=== PATIENT | male | born 1955 | race Caucasian/White ===

== ENCOUNTER 2024-05-03 11:09 | Day surgery (SDC) | payer MEDICARE, OTHER ==
[2024-05-03] VITALS (12 sets, daily range): BP systolic 103–151; BP diastolic 60–85; PULSE 70–85; RESP 10–18; TEMP 97.4; O2SAT 92–98
[~2024-05-03] VITALS: Ht 177.8 cm; Wt 91.9 kg
[2024-05-03] MEDS ORDERED: nitroGLYCERIN 0.4mg SUBLingual tab SL PRN (11:45)
[2024-05-03] MEDS: normal saline 1,000 ML IV SCH (11:52)
[2024-05-03] MEDS: LORazepam 0.5 MG tablet PO PRN (11:52)
[2024-05-03] MEDS: diphenhydrAMINE 25mg capsule PO PRN (11:53)
[2024-05-03] MEDS ORDERED: iohexol 350MG/ML 100ml bottle IV ONE (11:57)
[2024-05-03] MEDS ORDERED: iohexol 350 MG/ML 50ML vial IV ONE (11:57)
[2024-05-03] MEDS ORDERED: LIDOcaine 1% 30ml preserv. free vial ONE (11:57)
[2024-05-03] MEDS ORDERED: midazolam 1 mg/ML 2ml injection ONE (11:57)
[2024-05-03] MEDS ORDERED: fentaNYL/PF 50MCG/1 ML 2ML syringe ONE (11:57)
[2024-05-03] MEDS ORDERED: dextrose 50%-water 50ml dispensing syringe IV PRN ×2 (12:15→12:20)
[2024-05-03] MEDS ORDERED: DEXTROSE 15 GM of carb/4 tabs (each vial/BOTTLE has 4 tablets) PO PRN ×3 (12:15→12:20)
[2024-05-03 12:18] LABS: BASOPHILS % (AUTO) 0.4 % (0-1); EOSINOPHILS % (AUTO) 0.2 % (0-6); HEMATOCRIT 52.8 % (42.0-52.0); HEMOGLOBIN 17.8 g/dl (14.0-17.9); LYMPHOCYTES % (AUTO) 15.2 % (21-51); MEAN CORPUSCULAR HEMOGLOBIN 29.9 PG (27.0-31.0); MEAN CORPUSCULAR HGB CONC 33.8 g/dL (33.0-36.5); MEAN CORPUSCULAR VOLUME 88.6 FL (78-98); MEAN PLATELET VOLUME 9.1 FL (7.4-10.4); MONOCYTES # (AUTO) 0.4 X10'3 (0-0.9); MONOCYTES % (AUTO) 6.1 % (2-12); NEUTROPHILS # (AUTO) 5.3 X10'3 (1.8-7.7); NEUTROPHILS % (AUTO) 78.1 % (42-75); PLATELET COUNT 217 X10'3 (140-440); RED BLOOD COUNT 5.96 X10'6 (4.70-6.10); RED CELL DISTRIBUTION WIDTH 13.3 % (11.5-14.5); WHITE BLOOD COUNT 6.8 X10'3 (4.5-11.0)
[2024-05-03] MEDS ORDERED: SITA100T11 PO (12:20)
[2024-05-03] MEDS ORDERED: LANTUS SQ (12:20)
[2024-05-03] MEDS ORDERED: GLIP5TAB23 PO (12:20)
[2024-05-03] MEDS ORDERED: EMPA10TA PO (12:20)
[2024-05-03] MEDS ORDERED: LISI2.5T14 PO (12:20)
[2024-05-03] MEDS ORDERED: NITR0.4T51 SL (12:21)
[2024-05-03 12:31] LABS: ALBUMIN 4.7 G/DL (3.4-5.0); ANION GAP 13 (8-16); APTT 29 SECONDS (22-32); BLOOD UREA NITROGEN 19 MG/DL (7-18); BUN/CREATININE RATIO 21.3 (10.0-20.0); CALCIUM 9.3 MG/DL (8.5-10.1); CHLORIDE 100 MMOL/L (99-107); CREATININE 0.89 MG/DL (0.60-1.10); GLUCOSE 179 MG/DL (70-104); INR 1.1 INR; POTASSIUM 3.9 MMOL/L (3.5-5.1); PROTHROMBIN TIME 11.2 SECONDS (9.0-12.0); SODIUM 139 MMOL/L (135-145); TOTAL CARBON DIOXIDE 25.9 MMOL/L (24-32); eCRCL 83 ML/MIN; eGFR 85 ML/MIN
[2024-05-03] MEDS ORDERED: ondansetron/PF 4mg/2ml inj IV PRN (14:20)
[2024-05-03] MEDS ORDERED: proCHLORperazine 10 MG/2 ml inj IV PRN (14:20)
[2024-05-03] MEDS ORDERED: OXAZEpam 15mg capsule PO PRN (14:20)
[2024-05-03] MEDS ORDERED: HYDROcodone/acetaminophen 10/325mg tab PO PRN (14:20)
[2024-05-03] MEDS ORDERED: HYDROcodone/acetaminophen 5mg/325mg tablet PO PRN (14:20)
[2024-05-03] MEDS ORDERED: normal saline 1000ml 1,000 ML IV SCH (14:20)
== END 2024-05-03 19:30 | disposition home or self-care (01) ==
LOC: SSTAY O 11:09
PROVIDERS: ATTEND Internal Medicine Cardiovascular Disease
DX: R94.39 Abnormal result of other cardiovascular function study (principal); I25.118 Atherosclerotic heart disease of native coronary artery with other forms of angina pectoris; I10 Essential (primary) hypertension; E11.9 Type 2 diabetes mellitus without complications; I44.5 Left posterior fascicular block; Z79.899 Other long term (current) drug therapy; Z79.01 Long term (current) use of anticoagulants
CPT/HCPCS: 36415; 71046; 80048; 85025; 85610; 85730; 93005; 93458; 93880; 93970; 94010; 99152; 99153; A6258; C1760; J1644; J2003; J2250; J3010; J7030; Q0163; Q9967; Z7610

== ENCOUNTER 2024-05-08 05:21 | Inpatient (IN) | payer MEDICARE, OTHER ==
[~2024-05-08] VITALS: Ht 177.8 cm; Wt 91.3 kg
[2024-05-08] VITALS (21 sets, daily range): BP systolic 99–159; BP diastolic 50–75; PULSE 70–81; RESP 12–23; TEMP 97.6; O2SAT 94–100
[~2024-05-08 05:21] MED LIST: EMPA10TA PO; GLIP5TAB23 PO; LANTUS SQ; LISI2.5T14 PO; NITR0.4T51 SL; SITA100T11 PO
[2024-05-08] MEDS: Insulin Reg/NS 100units/100mL 100 ML IV SCH ×2 (06:40→18:31)
[2024-05-08] MEDS ORDERED: epiNEPHrine 1 mg/ml inj ONE (06:44)
[2024-05-08] MEDS ORDERED: ceFAZolin 1000mg inj ONE (06:44)
[2024-05-08] MEDS ORDERED: vancomycin 1,000mg inj ONE (06:45)
[2024-05-08] MEDS ORDERED: BUPIVAcaine 0.5% inj/PF 30 ML ONE (06:45)
[2024-05-08] MEDS: ceFAZolin 1000mg inj IR ONE (07:00)
[2024-05-08] MEDS: mupirocin 2% nasal ointment 1gm UD NS SCH ×2 (07:31→20:06)
[2024-05-08] MEDS: VANCOMYCIN/WATER FOR INJ (PEG) 1.5GM/300 ML IVPB IV ONE (07:31)
[2024-05-08] MEDS: famotidine 20mg tablet PO ONE (07:31)
[2024-05-08] MEDS: ceFAZolin 2gm in dextrose, iso 50 ML IV ONE (07:32)
[2024-05-08] MEDS: metoprolol tartrate 12.5mg (1/2 tablet) PO ONE (07:33)
[2024-05-08] MEDS ORDERED: aminocaproic acid 250 MG/1 ML inj. ONE (08:00)
[2024-05-08] MEDS ORDERED: isoflurane 100ml inhalation liquid IH ONE (08:03)
[2024-05-08] MEDS ORDERED: SUfentanil 50mcg/ml 1ml amp IV ONE (08:03)
[2024-05-08] MEDS ORDERED: MIDAZolam 1mg/ml 10ml vial ONE (08:03)
[2024-05-08] MEDS: midazolam 1 mg/ML 2ml injection IV ONE ×2 (08:05→08:15)
[2024-05-08] MEDS ORDERED: fentaNYL/PF 50MCG/1 ML 2ML syringe IV PRN (08:15)
[2024-05-08] MEDS: midazolam 100mg in NS 100ml 100 ML IV SCH (08:15)
[2024-05-08] MEDS: FENTANYL-0.9 % NACL/PF 100 ML IV SCH (08:15)
[2024-05-08 08:42] LABS: ABG HCO3 21.6 mmol/L (21.0-28.0); ABG OXYGEN SATURATION 99.3 % (94.0-98.0); ABG PCO2 41.4 mmHg (35.0-48.0); ABG PH 7.335 (7.350-7.450); ABG PO2 270.9 mmHg (83.0-108.0); CL (ABG) 105 mmol/L (98-107); FCOHb 0.3 % (0.5-1.5); FHHb 0.7 % (0.0-5.0); FMetHb 0.2 % (0.0-1.5); FO2Hb 98.8 % (94.0-98.0); GLUCOSE (ABG) 173 mg/dl (65-95); IONIZED CA (ABG) 1.17 mmol/L (1.15-1.33); K (ABG) 3.6 mmol/L (3.40-4.50)
[2024-05-08] MEDS ORDERED: albumin (Human) 5% 250ml 250 ML IV ONE ×2 (08:51→10:05)
[2024-05-08] MEDS: INSULIN LISPRO 100 UNIT/ML INSULN.PEN MULTI-DOSE SQ SCH (09:00)
[2024-05-08] MEDS ORDERED: rocuronium 10mg/ml inj IV ONE ×3 (09:13→09:14)
[2024-05-08] MEDS ORDERED: propofol inj 20 ML IV ONE (09:13)
[2024-05-08] MEDS ORDERED: phenylephrine 10mg/ml inj. ONE (09:13)
[2024-05-08] MEDS ORDERED: 0.9 % SODIUM CHLORIDE 10 ML VIAL ONE (09:13)
[2024-05-08] MEDS ORDERED: LIDOcaine 2% (20mg/ml) 5ml vial ONE (09:14)
[2024-05-08] MEDS ORDERED: dexamethasone sod phosphate 4mg/ml inj. ONE (09:14)
[2024-05-08] MEDS ORDERED: ondansetron/PF 4mg/2ml inj ONE (09:14)
[2024-05-08] MEDS ORDERED: magnesium 1 GM/2 ML inj ONE ×2 (09:26)
[2024-05-08 09:59] LABS: ABG BASE EXCESS -5.3 mmol/L (-2.0-3.0); ABG HCO3 18.7 mmol/L (21.0-28.0); ABG OXYGEN SATURATION 99.4 % (94.0-98.0); ABG PCO2 32.1 mmHg (35.0-48.0); ABG PH 7.383 (7.350-7.450); ABG PO2 319.9 mmHg (83.0-108.0); CL (ABG) 106 mmol/L (98-107); FCOHb 0.3 % (0.5-1.5); FHHb 0.6 % (0.0-5.0); FMetHb 0.2 % (0.0-1.5); FO2Hb 98.9 % (94.0-98.0); GLUCOSE (ABG) 157 mg/dl (65-95); IONIZED CA (ABG) 1.14 mmol/L (1.15-1.33); K (ABG) 4.2 mmol/L (3.40-4.50); TOTAL HEMOGLOBIN 14.3 G/dl (13.5-17.5)
[2024-05-08 10:02] LABS: ACTIVATED CLOTTING TIME 130 SEC (101-148)
[2024-05-08] MEDS ORDERED: sodium phosphate inj. 15 MMOL in dextrose 5%-water 250 ML IV PRN (10:20)
[2024-05-08] MEDS ORDERED: potassium Cl 40MEQ/1/2NS 520ml 520 ML IV PRN (10:20)
[2024-05-08] MEDS ORDERED: insulin glargine (Lantus) pen - multi-dose SQ PRN (10:20)
[2024-05-08] MEDS ORDERED: mineral oil 133ml enema RC PRN (10:20)
[2024-05-08] MEDS ORDERED: magnesium sulf-water 4G/100mL 100 ML IV PRN (10:20)
[2024-05-08] MEDS ORDERED: dextrose 50%-water 50ml dispensing syringe IV PRN (10:20)
[2024-05-08] MEDS ORDERED: metoclopramide 5 mg/ml inj IV PRN (10:20)
[2024-05-08] MEDS ORDERED: acetaminophen 325mg tablet PO PRN ×2 (10:20)
[2024-05-08] MEDS ORDERED: potassium CL 10mEq/100ml bag 100 ML IV PRN (10:20)
[2024-05-08] MEDS ORDERED: potassium Cl 40MEQ/270ML bag 250 ML IV PRN (10:20)
[2024-05-08] MEDS ORDERED: morphine 4 MG/ML inj SYRINge IV PRN (10:20)
[2024-05-08] MEDS ORDERED: Neutra Phos packet PO PRN (10:20)
[2024-05-08] MEDS ORDERED: sodium phosphate inj. 30 MMOL in dextrose 5%-water 250 ML IV PRN (10:20)
[2024-05-08] MEDS ORDERED: potassium Cl 20 mEq SR tablet PO PRN (10:20)
[2024-05-08 10:29] LABS: ACT @ 1.70 U 292 SEC (193-297); ACT @ 2.84 U 402 SEC (260-420); BASELINE ACT 139 SEC (101-148); PATIENT WEIGHT 91.0k KG
[2024-05-08] MEDS ORDERED: sodium phosphate inj. 15 MMOL in normal saline 250ml IV soln 250 ML IV PRN (10:51)
[2024-05-08] MEDS ORDERED: sodium phosphate inj. 30 MMOL in normal saline 250ml IV soln 250 ML IV PRN (10:51)
[2024-05-08] MEDS: albumin (Human) 5% 250ml 250 ML IV PRN (10:53)
[2024-05-08 10:59] LABS: ABG BASE EXCESS -2.4 mmol/L (-2.0-3.0); ABG HCO3 22.7 mmol/L (21.0-28.0); ABG PCO2 (T) 36.7 mmHg (35.0-48.0); ABG PO2 (T) 128.7 mmHg (83.0-108.0); FCOHb 0.7 % (0.5-1.5); FMetHb 0.3 % (0.0-1.5); MODE SIMV; PATIENT TEMPERATURE 34.8; PEEP 5 cm H2O; RESPIRATORY RATE 12 b/min; TIDAL VOLUME 600 mL; TOTAL HEMOGLOBIN 13.5 G/dl (13.5-17.5)
[2024-05-08 11:12] LABS: BASOPHILS % (AUTO) 0.5 % (0-1); EOSINOPHILS # (AUTO) 0.1 X10'3 (0-0.9); EOSINOPHILS % (AUTO) 1.4 % (0-6); HEMATOCRIT 39.1 % (42.0-52.0); LYMPHOCYTES # (AUTO) 0.9 X10'3 (1.1-4.8); LYMPHOCYTES % (AUTO) 15.7 % (21-51); MEAN CORPUSCULAR HEMOGLOBIN 29.5 PG (27.0-31.0); MEAN CORPUSCULAR HGB CONC 33.3 g/dL (33.0-36.5); MEAN CORPUSCULAR VOLUME 88.6 FL (78-98); MEAN PLATELET VOLUME 9.2 FL (7.4-10.4); MONOCYTES # (AUTO) 0.4 X10'3 (0-0.9); MONOCYTES % (AUTO) 6.3 % (2-12); NEUTROPHILS # (AUTO) 4.6 X10'3 (1.8-7.7); NEUTROPHILS % (AUTO) 76.1 % (42-75); PLATELET COUNT 173 X10'3 (140-440); RED BLOOD COUNT 4.41 X10'6 (4.70-6.10); RED CELL DISTRIBUTION WIDTH 12.9 % (11.5-14.5)
[2024-05-08 11:27] LABS: APTT 31 SECONDS (22-32); INR 1.1 INR; PROTHROMBIN TIME 11.9 SECONDS (9.0-12.0)
[2024-05-08 11:38] LABS: ALANINE AMINOTRANSFERASE 40 U/L (12-78); ALBUMIN 2.9 G/DL (3.4-5.0); ALBUMIN/GLOBULIN RATIO 1.1 (1.1-1.5); ALKALINE PHOSPHATASE 74 IU/L (46-116); ANION GAP 5 (8-16); ASPARTATE AMINO TRANSFERASE 24 U/L (10-37); BILIRUBIN,TOTAL 0.5 MG/DL (0.1-1.0); BLOOD UREA NITROGEN 14 MG/DL (7-18); BUN/CREATININE RATIO 23.3 (10.0-20.0); CALCIUM 7.5 MG/DL (8.5-10.1); CHLORIDE 111 MMOL/L (99-107); GLUCOSE 130 MG/DL (70-104); MAGNESIUM 2.3 MG/DL (1.5-2.4); PHOSPHORUS 2.5 MG/DL (2.3-4.5); SODIUM 142 MMOL/L (135-145); TOTAL CARBON DIOXIDE 26.1 MMOL/L (24-32); TOTAL PROTEIN 5.5 G/DL (6.4-8.2); eCRCL 123 ML/MIN; eGFR > 90 ML/MIN
[2024-05-08 11:40] LABS: POTASSIUM 4.4 MMOL/L (3.5-5.1)
[2024-05-08] MEDS: nitroGLYCERIN-Tridil 50MG/D5W 250 ML IV SCH (11:45)
[2024-05-08] MEDS: sodium chloride 0.45% 1,000 ML IV SCH (12:00)
[2024-05-08] MEDS: niCARDipine-NS 40mg/200ml IVPB 200 ML IV PRN (12:33)
[2024-05-08] MEDS: magnesium sulf-water 2g/50mL 50 ML IV PRN (12:33)
[2024-05-08] MEDS: potassium Cl 20mEq/100mL bag 100 ML IV PRN (12:34)
[2024-05-08] MEDS: ketorolac trometh 15mg/ml vial 15 MG/ML ML IV SCH (13:49)
[2024-05-08] MEDS: morphine 2 MG/ML inj. syringe IV PRN (15:49)
[2024-05-08] MEDS: ceFAZolin/D5W- 1GM premix 50 ML IV SCH (16:11)
[2024-05-08 17:29] LABS: BASOPHILS % (AUTO) 0.2 % (0-1); EOSINOPHILS % (AUTO) 0.1 % (0-6); HEMATOCRIT 39.4 % (42.0-52.0); HEMOGLOBIN 13.2 g/dl (14.0-17.9); LYMPHOCYTES # (AUTO) 0.4 X10'3 (1.1-4.8); LYMPHOCYTES % (AUTO) 3.4 % (21-51); MEAN CORPUSCULAR HEMOGLOBIN 29.7 PG (27.0-31.0); MEAN CORPUSCULAR HGB CONC 33.5 g/dL (33.0-36.5); MEAN CORPUSCULAR VOLUME 88.5 FL (78-98); MONOCYTES # (AUTO) 0.6 X10'3 (0-0.9); MONOCYTES % (AUTO) 5.3 % (2-12); NEUTROPHILS # (AUTO) 10.1 X10'3 (1.8-7.7); PLATELET COUNT 203 X10'3 (140-440); RED BLOOD COUNT 4.46 X10'6 (4.70-6.10); WHITE BLOOD COUNT 11.1 X10'3 (4.5-11.0)
[2024-05-08 17:40] LABS: ALBUMIN 3.6 G/DL (3.4-5.0); ANION GAP 6 (8-16); BLOOD UREA NITROGEN 12 MG/DL (7-18); BUN/CREATININE RATIO 19.4 (10.0-20.0); CHLORIDE 111 MMOL/L (99-107); CREATININE 0.62 MG/DL (0.60-1.10); GLUCOSE 119 MG/DL (70-104); MAGNESIUM 2.4 MG/DL (1.5-2.4); PHOSPHORUS 2.5 MG/DL (2.3-4.5); POTASSIUM 4.6 MMOL/L (3.5-5.1); SODIUM 142 MMOL/L (135-145); eCRCL 119 ML/MIN; eGFR > 90 ML/MIN
[2024-05-08] MEDS: HYDROcodone/acetaminophen 10/325mg tab PO PRN (18:30)
[2024-05-08] MEDS: sennosides/docusate sodium tablet PO SCH (20:05)
[2024-05-08] MEDS: vancomycin/NS 1 GM ADD-VANTAGE 250 ML IV SCH (20:06)
[2024-05-08] MEDS: atorvastatin 10mg tablet PO SCH (20:06)
[2024-05-09] VITALS (25 sets, daily range): BP systolic 102–137; BP diastolic 49–83; PULSE 60–92; RESP 11–19; O2SAT 89–97
[2024-05-09 02:19] LABS: BASOPHILS % (AUTO) 0.4 % (0-1); EOSINOPHILS % (AUTO) 0 % (0-6); HEMATOCRIT 38.8 % (42.0-52.0); HEMOGLOBIN 13.1 g/dl (14.0-17.9); LYMPHOCYTES # (AUTO) 0.9 X10'3 (1.1-4.8); LYMPHOCYTES % (AUTO) 8.6 % (21-51); MEAN CORPUSCULAR HEMOGLOBIN 29.8 PG (27.0-31.0); MEAN CORPUSCULAR HGB CONC 33.8 g/dL (33.0-36.5); MEAN CORPUSCULAR VOLUME 88.3 FL (78-98); MEAN PLATELET VOLUME 9.4 FL (7.4-10.4); MONOCYTES # (AUTO) 0.8 X10'3 (0-0.9); MONOCYTES % (AUTO) 7.5 % (2-12); NEUTROPHILS # (AUTO) 9.1 X10'3 (1.8-7.7); NEUTROPHILS % (AUTO) 83.5 % (42-75); PLATELET COUNT 205 X10'3 (140-440); RED CELL DISTRIBUTION WIDTH 13.3 % (11.5-14.5); WHITE BLOOD COUNT 10.8 X10'3 (4.5-11.0)
[2024-05-09 02:37] LABS: ALANINE AMINOTRANSFERASE 35 U/L (12-78); ALBUMIN 3.1 G/DL (3.4-5.0); ALBUMIN/GLOBULIN RATIO 1.1 (1.1-1.5); ALKALINE PHOSPHATASE 68 IU/L (46-116); ANION GAP 7 (8-16); BILIRUBIN,TOTAL 0.8 MG/DL (0.1-1.0); BLOOD UREA NITROGEN 14 MG/DL (7-18); BUN/CREATININE RATIO 22.6 (10.0-20.0); CALCIUM 7.9 MG/DL (8.5-10.1); CHLORIDE 107 MMOL/L (99-107); CREATININE 0.62 MG/DL (0.60-1.10); GLUCOSE 122 MG/DL (70-104); MAGNESIUM 2.4 MG/DL (1.5-2.4); SODIUM 138 MMOL/L (135-145); TOTAL CARBON DIOXIDE 24.5 MMOL/L (24-32); TOTAL PROTEIN 5.9 G/DL (6.4-8.2); eCRCL 119 ML/MIN; eGFR > 90 ML/MIN
[2024-05-09 02:39] LABS: ASPARTATE AMINO TRANSFERASE 26 U/L (10-37); PHOSPHORUS 3.6 MG/DL (2.3-4.5)
[2024-05-09] MEDS: metoprolol tartrate 12.5mg (1/2 tablet) PO SCH (07:06)
[2024-05-09] MEDS: aspirin 81mg tab.chew PO SCH (07:32)
[2024-05-09] MEDS: HYDROcodone/acetaminophen 10/325mg tab PO PRN (11:53)
[2024-05-09] MEDS: ondansetron/PF 4mg/2ml inj IV PRN (12:50)
[2024-05-09] MEDS ORDERED: mineral oil/petrolatum ophthal oint EACHEYE SCH (14:00)
[2024-05-09] MEDS: HYDROcodone/acetaminophen 10/325mg tab PO ONE (14:11)
[2024-05-09] MEDS ORDERED: dextrose 50%-water 50ml dispensing syringe IV PRN ×2 (15:25)
[2024-05-09] MEDS ORDERED: glucagon, human recombinant 1mg kit SUBCUT PRN (15:25)
[2024-05-09] MEDS ORDERED: DEXTROSE 15 GM of carb/4 tabs (each vial/BOTTLE has 4 tablets) PO PRN ×2 (15:25)
[2024-05-09] MEDS: INSULIN LISPRO 100 UNIT/ML INSULN.PEN MULTI-DOSE SQ SCH (17:35)
[2024-05-09] MEDS: proCHLORperazine 10 MG/2 ml inj IV STA (17:50)
[2024-05-10] VITALS (24 sets, daily range): BP systolic 113–158; BP diastolic 59–85; PULSE 68–97; RESP 9–27; TEMP 98.5–98.8; O2SAT 81–96
[2024-05-10 03:03] LABS: BASOPHILS % (AUTO) 0.4 % (0-1); EOSINOPHILS # (AUTO) 0.1 X10'3 (0-0.9); EOSINOPHILS % (AUTO) 0.7 % (0-6); HEMATOCRIT 41.1 % (42.0-52.0); HEMOGLOBIN 13.7 g/dl (14.0-17.9); LYMPHOCYTES # (AUTO) 1.3 X10'3 (1.1-4.8); LYMPHOCYTES % (AUTO) 13.8 % (21-51); MEAN CORPUSCULAR HEMOGLOBIN 29.5 PG (27.0-31.0); MEAN CORPUSCULAR HGB CONC 33.3 g/dL (33.0-36.5); MEAN CORPUSCULAR VOLUME 88.5 FL (78-98); MEAN PLATELET VOLUME 8.8 FL (7.4-10.4); MONOCYTES % (AUTO) 10.9 % (2-12); NEUTROPHILS # (AUTO) 7.1 X10'3 (1.8-7.7); NEUTROPHILS % (AUTO) 74.2 % (42-75); PLATELET COUNT 196 X10'3 (140-440); RED BLOOD COUNT 4.65 X10'6 (4.70-6.10); RED CELL DISTRIBUTION WIDTH 13.1 % (11.5-14.5); WHITE BLOOD COUNT 9.5 X10'3 (4.5-11.0)
[2024-05-10 03:18] LABS: ALBUMIN 3.1 G/DL (3.4-5.0); ANION GAP 7 (8-16); BLOOD UREA NITROGEN 21 MG/DL (7-18); BUN/CREATININE RATIO 30.9 (10.0-20.0); CALCIUM 8.3 MG/DL (8.5-10.1); CHLORIDE 104 MMOL/L (99-107); CREATININE 0.68 MG/DL (0.60-1.10); GLUCOSE 158 MG/DL (70-104); MAGNESIUM 2.1 MG/DL (1.5-2.4); PHOSPHORUS 2.5 MG/DL (2.3-4.5); POTASSIUM 4.6 MMOL/L (3.5-5.1); SODIUM 139 MMOL/L (135-145); eCRCL 109 ML/MIN; eGFR > 90 ML/MIN
[2024-05-10] MEDS ORDERED: potassium Cl 40MEQ/1/2NS 520ml 520 ML IV PRN (07:40)
[2024-05-10] MEDS ORDERED: magnesium sulf-water 2g/50mL 50 ML IV PRN (07:40)
[2024-05-10] MEDS ORDERED: potassium Cl 20mEq/100mL bag 100 ML IV PRN (07:40)
[2024-05-10] MEDS ORDERED: potassium CL 10mEq/100ml bag 100 ML IV PRN (07:40)
[2024-05-10] MEDS ORDERED: potassium Cl 20 mEq SR tablet PO PRN ×2 (07:40)
[2024-05-10] MEDS ORDERED: potassium Cl 40MEQ/270ML bag 250 ML IV PRN (07:40)
[2024-05-10] MEDS ORDERED: magnesium sulf-water 4G/100mL 100 ML IV PRN (07:40)
[2024-05-10] MEDS: magnesium Cl slow-release 64mg tablet PO SCH (08:00)
[2024-05-10] MEDS: pantoprazole 40mg Tablet.DR PO SCH (08:10)
[2024-05-10] MEDS ORDERED: CefTRIAXone/D5W-Rocephin 1gm 50 ML IV SCH (08:35)
[2024-05-10] MEDS: magnesium hydroxide 30ml (MOM) UD suspension PO PRN (15:06)
[2024-05-11] VITALS (9 sets, daily range): BP systolic 117–150; BP diastolic 71–88; PULSE 64–94; RESP 16–20; TEMP 97.1–99; O2SAT 93–98
[2024-05-11] MEDS ORDERED: LOP12.5T PO (08:19)
[2024-05-11] MEDS ORDERED: ATOR10TA PO (08:19)
[2024-05-11] MEDS ORDERED: HYDR-3972 PO (08:19)
[2024-05-11] MEDS ORDERED: ASPI81TA53 PO (08:19)
[2024-05-11] MEDS: furosemide 40mg/4ml inj IV ONE (08:38)
[2024-05-11 08:40] LABS: BASOPHILS % (AUTO) 0.4 % (0-1); EOSINOPHILS # (AUTO) 0.1 X10'3 (0-0.9); EOSINOPHILS % (AUTO) 1.4 % (0-6); HEMATOCRIT 40.5 % (42.0-52.0); HEMOGLOBIN 13.8 g/dl (14.0-17.9); LYMPHOCYTES # (AUTO) 1.2 X10'3 (1.1-4.8); LYMPHOCYTES % (AUTO) 15.6 % (21-51); MEAN CORPUSCULAR HEMOGLOBIN 29.9 PG (27.0-31.0); MEAN CORPUSCULAR HGB CONC 34.1 g/dL (33.0-36.5); MEAN CORPUSCULAR VOLUME 87.7 FL (78-98); MEAN PLATELET VOLUME 8.9 FL (7.4-10.4); MONOCYTES # (AUTO) 0.8 X10'3 (0-0.9); NEUTROPHILS # (AUTO) 5.4 X10'3 (1.8-7.7); NEUTROPHILS % (AUTO) 71.6 % (42-75); PLATELET COUNT 174 X10'3 (140-440); RED BLOOD COUNT 4.62 X10'6 (4.70-6.10); WHITE BLOOD COUNT 7.6 X10'3 (4.5-11.0)
[2024-05-11 08:51] LABS: ALBUMIN 2.8 G/DL (3.4-5.0); ANION GAP 9 (8-16); BLOOD UREA NITROGEN 17 MG/DL (7-18); BUN/CREATININE RATIO 30.4 (10.0-20.0); CALCIUM 8.5 MG/DL (8.5-10.1); CHLORIDE 103 MMOL/L (99-107); CREATININE 0.56 MG/DL (0.60-1.10); GLUCOSE 147 MG/DL (70-104); POTASSIUM 4.3 MMOL/L (3.5-5.1); SODIUM 140 MMOL/L (135-145); TOTAL CARBON DIOXIDE 28.2 MMOL/L (24-32); eCRCL 132 ML/MIN; eGFR > 90 ML/MIN
[2024-05-11] MEDS: bisacodyl 10mg suppository rectal RC PRN (09:08)
[2024-05-12 02:00] VITALS: BP 140/76; PULSE 68; RESP 16; TEMP 96.3; O2SAT 95
[2024-05-12 06:00] VITALS: BP 151/89; PULSE 78; RESP 14; TEMP 97.4; O2SAT 95
[2024-05-12 07:04] LABS: BASOPHILS % (AUTO) 0.7 % (0-1); EOSINOPHILS # (AUTO) 0.2 X10'3 (0-0.9); EOSINOPHILS % (AUTO) 2.9 % (0-6); HEMATOCRIT 43.2 % (42.0-52.0); HEMOGLOBIN 14.6 g/dl (14.0-17.9); LYMPHOCYTES # (AUTO) 1.7 X10'3 (1.1-4.8); LYMPHOCYTES % (AUTO) 25.8 % (21-51); MEAN CORPUSCULAR HEMOGLOBIN 29.6 PG (27.0-31.0); MEAN CORPUSCULAR HGB CONC 33.7 g/dL (33.0-36.5); MEAN CORPUSCULAR VOLUME 87.9 FL (78-98); MEAN PLATELET VOLUME 8.6 FL (7.4-10.4); MONOCYTES # (AUTO) 0.6 X10'3 (0-0.9); MONOCYTES % (AUTO) 9.6 % (2-12); NEUTROPHILS # (AUTO) 4.1 X10'3 (1.8-7.7); PLATELET COUNT 200 X10'3 (140-440); RED BLOOD COUNT 4.92 X10'6 (4.70-6.10); RED CELL DISTRIBUTION WIDTH 12.9 % (11.5-14.5); WHITE BLOOD COUNT 6.7 X10'3 (4.5-11.0)
[2024-05-12 07:36] LABS: ALBUMIN 2.9 G/DL (3.4-5.0); ANION GAP 6 (8-16); BLOOD UREA NITROGEN 22 MG/DL (7-18); CALCIUM 8.9 MG/DL (8.5-10.1); CHLORIDE 102 MMOL/L (99-107); CREATININE 0.71 MG/DL (0.60-1.10); GLUCOSE 203 MG/DL (70-104); MAGNESIUM 1.9 MG/DL (1.5-2.4); POTASSIUM 4.1 MMOL/L (3.5-5.1); SODIUM 139 MMOL/L (135-145); eCRCL 104 ML/MIN; eGFR > 90 ML/MIN
[2024-05-12 08:00] VITALS: RESP 12
[2024-05-12 11:00] VITALS: BP 134/77; PULSE 77; RESP 17; TEMP 97.9; O2SAT 99
[2024-05-12 15:00] VITALS: BP 160/91; PULSE 89; RESP 20; TEMP 97.6; O2SAT 100
[2024-05-24] MEDS ORDERED: APIX5TAB3 PO (08:25)
[2024-05-24] MEDS ORDERED: AMI200T PO (08:25)
[2024-05-24] MEDS ORDERED: LACT1CAP26 PO (12:36)
[2024-05-24] MEDS ORDERED: CEFD300C3 PO (12:36)
[2024-05-24] MEDS ORDERED: ALBU2.5V7 NEB (12:36)
[2024-05-24] MEDS ORDERED: AZIT500T9 PO (12:41)
[2024-05-24] MEDS ORDERED: ALBU8HFA PO (14:11)
== END 2024-05-12 16:42 | disposition home or self-care (01) | DRG 236 ==
LOC: PAS IN 05:54 → CICU 2S 09:45 → PCU 3S 05-10 20:03
PROVIDERS: ADMIT Thoracic Surgery (Cardiothoracic Vascular Surgery); ATTEND Thoracic Surgery (Cardiothoracic Vascular Surgery)
PROC: 021009W Bypass Coronary Artery, One Artery from Aorta with Autologous Venous Tissue, Open Approach (ICD-10-PCS; 2024-05-08)
PROC: 06BQ4ZZ Excision of Left Saphenous Vein, Percutaneous Endoscopic Approach (ICD-10-PCS; 2024-05-08)
PROC: B24BZZ4 Ultrasonography of Heart with Aorta, Transesophageal (ICD-10-PCS; 2024-05-08)
PROC: 02100Z9 Bypass Coronary Artery, One Artery from Left Internal Mammary, Open Approach (ICD-10-PCS; principal; 2024-05-08 08:03)
DX: I25.10 Atherosclerotic heart disease of native coronary artery without angina pectoris (principal); E11.9 Type 2 diabetes mellitus without complications; I10 Essential (primary) hypertension; Z88.8 Allergy status to other drugs, medicaments and biological substances; Z88.1 Allergy status to other antibiotic agents
CPT/HCPCS: 36415; 36600; 71045; 80048; 80053; 82330; 82435; 82803; 82947; 82948; 83735; 84100; 84132; 84295; 85018; 85025; 85347; 85610; 85730; 86885; 86900; 86901; 86920; 87081; 93312; 93325; 94002; 94760; 97110; 97116; 97161; 97530; A4615; A4618; A6213; A6258; A6449; A7000; A7048; C1751; G0378; J0171; J0665; J0690; J0780; J1100; J1250; J1644; J1815; J1885; J1940; J2003; J2250; J2270; J2371; J2405; J2704; J2720; J3370; J3372; J3475; J3480; J3490; J7030; J7040; J7050; J7120; P9045

== ENCOUNTER 2024-06-06 11:58 | Outpatient (CLI) | payer MEDICARE, OTHER ==
[~2024-06-06 11:58] MED LIST changes: +ALBU8HFA PO; +AMI200T PO; +APIX5TAB3 PO; +ASPI81TA53 PO; +ATOR10TA PO; +AZIT500T9 PO; +CEFD300C3 PO; +HYDR-3972 PO; +LACT1CAP26 PO; +LOP12.5T PO; -NITR0.4T51 SL
== END 2024-06-06 23:59 | disposition home or self-care (01) ==
LOC: RAD 11:58
PROVIDERS: ATTEND Thoracic Surgery (Cardiothoracic Vascular Surgery)
DX: J90 Pleural effusion, not elsewhere classified (principal); J18.1 Lobar pneumonia, unspecified organism
CPT/HCPCS: 71046